=== PATIENT | female | born 1945 | race Caucasian/White ===

== ENCOUNTER → 2017-02-26 | Outpatient (CLI) | payer OTHER, MEDICARE ==
[~2017-02-26] MED LIST: ASPI1TAB83 PO; ATOR10TA82 PO; CALC-20 PO; HYDR-5688 PO; LSN/2025 PO; TPRSR50 PO; TYLOTC500 PO
--- NOTE | 2017-02-26 15:12 | MAMMOGRAPHY REPORT ---
BILATERAL DIGITAL SCREENING MAMMOGRAM TOMOSYNTHESIS WITH CAD: 02/26/2017 CLINICAL HISTORY: Routine screening. Patient has no complaints. TECHNIQUE: Breast tomosynthesis in addition to standard 2D mammography was performed. Current study was also evaluated with a Computer Aided Detection (CAD) system. COMPARISON: Comparison is made to exams dated: 02/21/2016 mammogram, 02/16/2015 mammogram, 01/06/2014 mammogram, 11/13/2012 mammogram, 07/19/2011 mammogram, and 05/27/2010 mammogram - [facility]. BREAST COMPOSITION: The tissue of both breasts is almost entirely fatty. FINDINGS: There are mild vascular calcifications in both breasts. There is a stable biopsy marker c lip in the 12:00 right breast, and stable focal asymmetry in the upper outer anterior right breast. N o new suspicious mass, architectural distortion or cluster of microcalcifications is seen. IMPRESSION: ACR BI-RADS CATEGORY 2: BENIGN There is no mammographic evidence of malignancy. A 1 year screening mammogram is recommended. The pa tient will receive written notification of the results. Approximately 10% of breast cancers are not detected with mammography. A negative mammographic report should not delay biopsy if a clinically suggestive mass is present. Michelle Rincon M.D. ay/:02/26/2017 13:46:59 Digital Forensic Analyst: Joyce HELLER)(M), [facility] letter sent: Normal 1/2 BI-RADS Code: ACR BI-RADS Category 2: Benign
== END | disposition home or self-care (01) ==
LOC: C.MAMM 07:04
PROVIDERS: ATTEND Family Medicine
DX: Z12.31 Encounter for screening mammogram for malignant neoplasm of breast (principal)

== ENCOUNTER → 2017-09-19 | Outpatient (CLI) | payer OTHER, MEDICARE ==
[~2017-09-19] MED LIST changes: +LISI20TA11 PO; -LSN/2025 PO
--- NOTE | 2017-09-19 14:18 | MAMMOGRAPHY REPORT ---
UNILATERAL LEFT DIGITAL DIAGNOSTIC MAMMOGRAM TOMOSYNTHESIS WITH CAD AND TARGETED LEFT ULTRASOUND: 09/01 CLINICAL HISTORY: The patient reports an itchy rash involving her left nipple for approximately 2.5-3 months. She was prescribed a steroid cream 1 week ago and her symptoms have improved. TECHNIQUE: Breast tomosynthesis in addition to standard 2D mammography was performed. Current study was also evaluated with a Computer Aided Detection (CAD) system. Left CC and MLO 2D and tomosynthesi s images were obtained. COMPARISON: Comparison is made to exams dated: 02/26/2017 mammogram, 02/21/2016 mammogram, 5 mammogram, 01/06/2014 mammogram, 11/13/2012 mammogram, and 07/19/2011 mammogram - [facility]. BREAST COMPOSITION: The tissue of the left breast is almost entirely fatty. FINDINGS: There are no suspicious masses, calcifications, or areas of architectural distortion noted in the left breast mammographically. There has been no significant interval change compared to prior exams. On clinical exam a faint erythematous rash is seen surrounding the left nipple. Targeted ul trasound was performed of the left subareolar breast, which shows sonographically normal tissue witho ut evidence of a mass or other suspicious sonographic abnormality. IMPRESSION: ACR BI-RADS CATEGORY 1: NEGATIVE, TARGETED ULTRASOUND ACR BI-RADS CATEGORY 1: NEGATIVE No suspicious mammographic or sonographic abnormality in the left subareolar breast. There is no margarita mographic or targeted sonographic evidence of malignancy. Recommend clinical follow-up to resolution of the itchy rash involving the left nipple; if the symptoms do not resolve then consider dermatolog y consultation. Return to annual mammogram screening schedule is recommended, due January 2018. The patient has been verbally notified of the results. Approximately 10% of breast cancers are not detected with mammography. A negative mammographic report should not delay biopsy if a clinically suggestive mass is present. Lorie Castillo M.D. /:09/19/2017 08:21:15 Jewel Hole Gauger: Joleen HELLER)([place]), [facility] letter sent: Normal 1/2 BI-RADS Code: ACR BI-RADS Category 1: Negative Ultrasound BI-RADS: ACR BI-RADS Category 1: Negative
--- NOTE | 2017-09-27 10:03 | CODING QUERY NO DIAGNOSIS ---
1945 TREATMENT RENDERED WITHOUT A DIAGNOSIS To promote full compliance with coding requirements relating to patient care, physician participation is requested in all cases of clinical biostatistics director uncertainty. Please assist us with providing a diagnosis/symptom for the test(s) below: A diagnosis/symptom was not documented on your Order. A valid diagnosis/symptom is required to bill all insurances. Please remember that we are unable to code a diagnosis of rule out, probable, possible, questionable, or suspected. Tests that require a diagnosis: 09/19/17 DIAG LEFT ORBIN WITH CAD DIAGNOSIS: ULTRASOUND BREAST LEFT DIAGNOSIS: Provider Signature: Date: Thank you NORM Beaulieu, [facility] Health Information Management Once completed, please kindly fax back to [phone] For questions please call [phone]
== END | disposition home or self-care (01) ==
LOC: C.MAMM 07:57
PROVIDERS: ATTEND Student in an Organized Health Care Education/Training Program
DX: L30.9 Dermatitis, unspecified (principal); N64.9 Disorder of breast, unspecified